=== PATIENT | male | born 1985 | race Caucasian/White ===

== ENCOUNTER 2017-08-16 23:47 | Emergency (ER) | payer MEDICAID ==
[~2017-08-16] VITALS: Ht 182.9 cm; Wt 81.6 kg
[2017-08-16 23:50] VITALS: BP 156/88
--- NOTE | 2017-08-17 00:02 | NUR ---
PT BIBSELF, PT C/O LEFT ARM ABSCESS'S S/P INJECTING IV DRUGS 2 WEEKS AGO. PT AOX3 RR EVEN AND UNLABORED. NO SOB NOTED. NAD NOTED. NO NVD AT THIS TIME. PT CASSIEWNED, WAITING FOR MD LEGER.
--- NOTE | 2017-08-17 00:32 | NUR ---
DR. ALBERTS AT BEDSIDE FOR EVAL.
[2017-08-17] MEDS ORDERED: LIDOCAINE 1% INJ 50 ML MDV IJ ONE (00:35)
--- NOTE | 2017-08-17 00:43 | NUR ---
DR. ALBERTS AT BEDSIDE FOR I&D
[2017-08-17] MEDS ORDERED: LIDOCAINE /MPF 1% VIAL 5 ML VIAL ONE (00:57)
[2017-08-17] MEDS ORDERED: CEFTRIAXONE 500 MG VIAL ONE (00:57)
[2017-08-17] MEDS ORDERED: CEFTRIAXONE 500 MG VIAL IM ONE (01:00)
== END 2017-08-17 01:10 | disposition home or self-care (01) ==
LOC: EDBD → ER 23:53
DX: L03.114 Cellulitis of left upper limb (principal); L02.414 Cutaneous abscess of left upper limb; L02.512 Cutaneous abscess of left hand
CPT/HCPCS: A4606; A6402; J0696; J3490; Z7610

== ENCOUNTER 2017-08-18 22:34 | Emergency (ER) | payer MEDICAID ==
[~2017-08-18] VITALS: Ht 182.9 cm; Wt 81.6 kg
[2017-08-18 22:39] VITALS: BP 145/93
== END 2017-08-19 00:35 | disposition home or self-care (01) ==
LOC: EDBD → ER 22:36
DX: Z48.00 Encounter for change or removal of nonsurgical wound dressing (principal)
CPT/HCPCS: A4606; A6402; A6407; Z7610

== ENCOUNTER 2017-08-20 19:25 | Emergency (ER) | payer BC, MEDICAID, OTHER ==
[~2017-08-20] VITALS: Ht 182.9 cm; Wt 63.5 kg
[2017-08-20 19:41] VITALS: BP 147/100
== END 2017-08-20 20:43 | disposition home or self-care (01) ==
LOC: EDBD 19:26 → ER 19:26
DX: Z48.00 Encounter for change or removal of nonsurgical wound dressing (principal)
CPT/HCPCS: A4606; A6407; Z7610